=== PATIENT | female | born 1985 | race African-American/Black ===

== ENCOUNTER 2017-05-22 16:48 | Emergency (ER) | payer SELFPAY ==
[2017-05-22 17:06] VITALS: BP 105/54
[2017-05-22] MEDS ORDERED: AZIT-1 PO (17:56)
--- NOTE | 2017-05-22 17:57 | ER Report ---
History and Physical Time Seen By MD: 17:10 Hx. of Stated Complaint: SORE THROAT FOR ONE WEEK. HPI/ROS 31-year-old female ambulatory to the ER is been ill for a week has had sinus pressure left ear pain and fever Allergies: Coded Allergies: No Known Drug Allergies (Unverified , 05/22/17) Home Meds Active Scripts Azithromycin (ZITHROMAX) 250 Mg Tablet, 2 TAB PO ONCE Y for DAILY for 5 Days, # 5 TAB Prov:NAOMI MUNSON 05/22/17 Reviewed Nurses Notes: Yes Old Medical Records Reviewed: Yes Hx Smoking: No Hx Substance Use Disorder: No Hx Alcohol Use: No Constitutional Vital Sign - Last 24 Hours 05/22/17 17:06 Temp 98.1 Pulse 83 Resp 16 B/P (MAP) 105/54 Pulse Ox 98 O2 Delivery Room Air Physical Exam 31-year-old female alert and oriented mild distress HEENT has normocephalic/ atraumatic tympanic membranes are non-reddened and does have pain to palpation left maxillary sinus postnasal drainage noted lymphadenopathy in the left heart rate regular no murmurs rubs or gallops lungs clear to auscultation abdomen soft bowel sounds 4 quadrants Medical Decision Making Data Points Laboratory Hematology Test 05/22/17 16:53 Group A Streptococcus Screen Negative (NEGATIVE) Chemistry Test 05/22/17 16:53 Group A Streptococcus Screen Negative (NEGATIVE) ED Course/Re-evaluation ED Course Was seen in the triage room will be given azithromycin 500 daily 5 days note that her does have strep throat currently as well Re-evaluation In mild distress will go home with prescription follow-up with primary care physician 1 week DX sinusitis Decision to Disposition Date: May 22, 2017 Decision to Disposition Time: 17:20 Depart Departure Latest Vital Signs Vital Signs Date Time Temp Pulse Resp B/P (MAP) Pulse Ox O2 Delivery O2 Flow Rate FiO2 05/22/17 17:06 98.1 83 16 105/54 98 Room Air Impression: Primary Impression: Sinusitis Condition: Improved Disposition: HOME OR SELF-CARE Referrals: [facility] 1 Week New Scripts Azithromycin (ZITHROMAX) 250 Mg Tablet 2 TAB PO ONCE Y for DAILY for 5 Days, #5 TAB Prov: NAOMI MUNSON 05/22/17 Patient Instructions: Sinusitis (ED) Additional Instructions: Take medication as instructed, follow-up with primary care physician in one week to be rechecked NAOMI MUNSON May 22, 2017 17:57
== END 2017-05-22 18:06 | disposition home or self-care (01) ==
LOC: ER 17:59
DX: J32.9 Chronic sinusitis, unspecified (principal)
CPT/HCPCS: 87081; 87880; 99282

== ENCOUNTER 2017-09-01 00:51 | Emergency (ER) | payer SELFPAY ==
--- NOTE | 2017-09-01 01:03 | ER Report ---
History and Physical Time Seen By MD: 01:03 HPI/PJ CHIEF COMPLAINT: seizure HISTORY OF PRESENT ILLNESS: This is a 32 year old female. She was brought to the ER by EMS. Initial call was to a person not breathing. On arrival, the patient was found to be breathing, but had had a seizure. She was brought in with current post-ictal state. Took her about 30-60 minutes to start to wake up enough to talk to us somewhat. She was able to speak with her before this. Ivorian is her second language, and she was able to respond in her makah language sooner. She was able to answer some simple questions regarding pain. She indicated that she is having severe pain in her neck area. She denies other pain. Unable to get much more information from her at that time. Her was able to tell me that she has had several seizures in the past when in [place] and then when living in [place]. It is unclear to me the timing of their move here to [place]. She has been seen by neurology at the [facility], in the past. She is not on any anti-seizure medications at this time. He says that she will have smaller episodes where she will just seem to black out at times and have a shorter period of confusion when recovering. He is not sure if these are seizures or not. He does state that she has told him that the seizures stem from head injuries and problems as a child. She said that the neurologist had told them that she had too much fluid in her head and they recommended draining some by putting a needle in her back. REVIEW OF SYSTEMS: Unable to obtain further due to mental status. Allergies: Coded Allergies: No Known Drug Allergies (Unverified , 09/01/17) Home Meds Discontinued Scripts Azithromycin (ZITHROMAX) 250 Mg Tablet, 2 TAB PO ONCE Y for DAILY for 5 Days, # 5 TAB Prov:NAOMI MUNSON 05/22/17 Past Medical/Surgical History Seizures of uncertain cause. No other problems. Reviewed Nurses Notes: Yes Hx Smoking: No Hx Substance Use Disorder: No Hx Alcohol Use: No Constitutional Vital Sign - Last 24 Hours 09/01/17 09/01/17 09/01/17 09/01/17 00:57 01:30 02:30 03:00 Temp 97.4 Pulse 82 76 84 84 Resp 16 14 14 12 B/P (MAP) 110/69 103/64 (77) 86/45 (59) 82/65 (71) Pulse Ox 97 95 96 96 O2 Delivery Room Air Room Air Room Air Room Air 09/01/17 09/01/17 09/01/17 09/01/17 03:30 04:00 04:30 05:00 Pulse 82 109 84 84 Resp 12 12 12 B/P (MAP) 89/49 (62) 85/51 (62) 84/48 (60) 83/51 (62) Pulse Ox 94 96 95 93 O2 Delivery Room Air Room Air Room Air Room Air 09/01/17 09/01/17 09/01/17 09/01/17 05:30 06:00 06:22 07:00 Pulse 85 79 77 85 Resp 12 12 12 12 B/P (MAP) 77/44 (55) 71/38 (49) 85/56 (66) 80/50 (60) Pulse Ox 95 93 94 94 O2 Delivery Room Air Room Air Room Air Room Air 09/01/17 09/01/17 09/01/17 09/01/17 07:15 07:30 07:45 08:00 Pulse 87 87 80 90 Resp 12 14 14 14 B/P (MAP) 83/55 (64) 89/57 (68) 93/56 (68) 93/59 (70) Pulse Ox 94 95 94 92 O2 Delivery Room Air Room Air Room Air Room Air 09/01/17 09/01/17 09/01/17 08:15 08:30 08:45 Pulse 90 85 82 Resp 12 12 14 B/P (MAP) 96/61 (73) 104/59 (74) 97/61 (73) Pulse Ox 95 95 95 O2 Delivery Room Air Room Air Room Air Intake and Output 09/01/17 09/01/17 09/02/17 15:00 23:00 07:00 Intake Total 1100 ml Balance 1100 ml Physical Exam General Appearance: The patient is still very groggy. She is able to answer a few simple questions, but with significant difficulty. Eyes: Pupils are equal, round. Reactive to light. No pallor, injection or icterus. Extraocular movements are intact. ENT: Mucous membranes are moist. Normal oral mucosa. Posterior oropharynx is normal. Normal tympanic membranes and canals. Did not bite her tongue. Neck: Supple and non tender. No lymphadenopathy. Respiratory: Lungs are clear to auscultation. There are no retractions or accessory muscle use. Cardiovascular: Regular rate and rhythm. No murmurs, gallops or rubs. Normal capillary refill. No edema. No carotid bruits. Gastrointestinal: Abdomen is soft and non tender. Nondistended. Normal active bowel sounds. No costovertebral angle tenderness with percussion. No loss of bowel control. Genitourinary: No loss of bladder control. Neurological: Alert and oriented x3. She is moving all extremities. Cannot perform full neuro exam at this time. Skin: Warm and dry. No rashes. Musculoskeletal: Extremities are nontender. Full range of motion. No tenderness in palpation of the cervical, thoracic and lumbar spine. DIFFERENTIAL DIAGNOSIS: After history and physical exam, differential diagnosis was considered for a seizure including but not limited to epilepsy, electrolyte abnormality, toxicity of some kind, head injury, and breakthrough seizure. Medical Decision Making Data Points Result Diagram: 09/01/17 0211 09/01/17 0211 Laboratory Hematology Test 09/01/17 02:11 09/01/17 04:01 Red Blood Count 4.40 M/uL (4.17-5.56) Mean Corpuscular Volume 91.3 fL (80.0-96.0) Mean Corpuscular Hemoglobin 32.6 pg (26.0-33.0) Mean Corpuscular Hemoglobin Concent 35.7 g/dL (32.0-36.0) Red Cell Distribution Width 12.8 % (11.5-14.5) Mean Platelet Volume 8.6 fL (7.2-11.1) Neutrophils (%) (Auto) 52.0 % (39.4-72.5) Lymphocytes (%) (Auto) 36.3 % (17.6-49.6) Monocytes (%) (Auto) 9.0 % (4.1-12.4) Eosinophils (%) (Auto) 2.2 % (0.4-6.7) Basophils (%) (Auto) 0.5 % (0.3-1.4) Nucleated RBC Relative Count (auto) 0.0 /100WBC Neutrophils # (Auto) 3.1 K/uL (2.0-7.4) Lymphocytes # (Auto) 2.2 K/uL (1.3-3.6) Monocytes # (Auto) 0.5 K/uL (0.3-1.0) Eosinophils # (Auto) 0.1 K/uL (0.0-0.5) Basophils # (Auto) 0.0 K/uL (0.0-0.1) Nucleated RBC Absolute Count (auto) 0.00 K/uL Sodium Level 140 mmol/L (137-145) Potassium Level 3.8 mmol/L (3.5-5.0) Chloride Level 105 mmol/L (98-107) Carbon Dioxide Level 25 mmol/L (22-31) Blood Urea Nitrogen 9 mg/dl (7-18) Creatinine 0.50 mg/dl (0.52-1.04) Glomerular Filtration Rate Calc > 60.0 Random Glucose 100 mg/dl (75-110) Calcium Level 9.2 mg/dl (8.4-10.2) Total Bilirubin 0.3 mg/dl (0.2-1.3) Aspartate Amino Transf (AST/SGOT) 23 U/L (0-35) Alanine Aminotransferase (ALT/SGPT) 24 U/L (0-56) Alkaline Phosphatase 78 U/L (0-126) Total Protein 7.4 g/dl (6.3-8.2) Albumin 4.1 g/dl (3.5-5.0) Salicylates Level < 10 mg/L Salicylate Last Dose Date unk Acetaminophen Level < 10 ug/ml Serum Alcohol < 10 mg/dl Urine Color Straw Urine Clarity Clear Urine pH 7.0 pH (4.8-9.5) Urine Specific [place] 1.004 Urine Protein Negative mg/dL (NEGATIVE) Urine Glucose (UA) Negative mg/dL (NEGATIVE) Urine Ketones Negative mg/dL (NEGATIVE) Urine Blood Negative (NEGATIVE) Urine Nitrite Negative (NEGATIVE) Urine Bilirubin Negative (NEGATIVE) Urine Urobilinogen Negative mg/dL (0.2-1.9) Urine Leukocyte Esterase Negative (NEGATIVE) Urine RBC None /HPF (0-2/HPF) Urine WBC None /HPF (0-5/HPF) Urine Squamous Epithelial Cells None /LPF (</=FEW) Urine Bacteria Negative /HPF (NONE-FEW) Urine Mucus None /HPF (NONE-FEW) Urine Opiates Screen Positive Urine Barbiturates Screen Negative Ur Tricyclic Antidepressants Screen Negative Urine Phencyclidine Screen Negative Urine Amphetamines Screen Negative Urine Benzodiazepines Screen Negative Urine Cocaine Screen Negative Urine Cannabinoids Screen Negative Chemistry Test 09/01/17 02:11 09/01/17 04:01 White Blood Count 6.0 k/uL (4.5-11.0) Red Blood Count 4.40 M/uL (4.17-5.56) Hemoglobin 14.3 g/dL (12.0-16.0) Hematocrit 40.1 % (34.0-47.0) Mean Corpuscular Volume 91.3 fL (80.0-96.0) Mean Corpuscular Hemoglobin 32.6 pg (26.0-33.0) Mean Corpuscular Hemoglobin Concent 35.7 g/dL (32.0-36.0) Red Cell Distribution Width 12.8 % (11.5-14.5) Platelet Count 300 K/uL (150-450) Mean Platelet Volume 8.6 fL (7.2-11.1) Neutrophils (%) (Auto) 52.0 % (39.4-72.5) Lymphocytes (%) (Auto) 36.3 % (17.6-49.6) Monocytes (%) (Auto) 9.0 % (4.1-12.4) Eosinophils (%) (Auto) 2.2 % (0.4-6.7) Basophils (%) (Auto) 0.5 % (0.3-1.4) Nucleated RBC Relative Count (auto) 0.0 /100WBC Neutrophils # (Auto) 3.1 K/uL (2.0-7.4) Lymphocytes # (Auto) 2.2 K/uL (1.3-3.6) Monocytes # (Auto) 0.5 K/uL (0.3-1.0) Eosinophils # (Auto) 0.1 K/uL (0.0-0.5) Basophils # (Auto) 0.0 K/uL (0.0-0.1) Nucleated RBC Absolute Count (auto) 0.00 K/uL Glomerular Filtration Rate Calc > 60.0 Calcium Level 9.2 mg/dl (8.4-10.2) Total Bilirubin 0.3 mg/dl (0.2-1.3) Aspartate Amino Transf (AST/SGOT) 23 U/L (0-35) Alanine Aminotransferase (ALT/SGPT) 24 U/L (0-56) Alkaline Phosphatase 78 U/L (0-126) Total Protein 7.4 g/dl (6.3-8.2) Albumin 4.1 g/dl (3.5-5.0) Salicylates Level < 10 mg/L Salicylate Last Dose Date unk Acetaminophen Level < 10 ug/ml Serum Alcohol < 10 mg/dl Urine Color Straw Urine Clarity Clear Urine pH 7.0 pH (4.8-9.5) Urine Specific [place] 1.004 Urine Protein Negative mg/dL (NEGATIVE) Urine Glucose (UA) Negative mg/dL (NEGATIVE) Urine Ketones Negative mg/dL (NEGATIVE) Urine Blood Negative (NEGATIVE) Urine Nitrite Negative (NEGATIVE) Urine Bilirubin Negative (NEGATIVE) Urine Urobilinogen Negative mg/dL (0.2-1.9) Urine Leukocyte Esterase Negative (NEGATIVE) Urine RBC None /HPF (0-2/HPF) Urine WBC None /HPF (0-5/HPF) Urine Squamous Epithelial Cells None /LPF (</=FEW) Urine Bacteria Negative /HPF (NONE-FEW) Urine Mucus None /HPF (NONE-FEW) Urine Opiates Screen Positive Urine Barbiturates Screen Negative Ur Tricyclic Antidepressants Screen Negative Urine Phencyclidine Screen Negative Urine Amphetamines Screen Negative Urine Benzodiazepines Screen Negative Urine Cocaine Screen Negative Urine Cannabinoids Screen Negative Toxicology Test 09/01/17 02:11 09/01/17 04:01 Salicylates Level < 10 mg/L Salicylate Last Dose Date unk Acetaminophen Level < 10 ug/ml Serum Alcohol < 10 mg/dl Urine Opiates Screen Positive Urine Barbiturates Screen Negative Ur Tricyclic Antidepressants Screen Negative Urine Phencyclidine Screen Negative Urine Amphetamines Screen Negative Urine Benzodiazepines Screen Negative Urine Cocaine Screen Negative Urine Cannabinoids Screen Negative Urinalysis Test 09/01/17 04:01 Urine Color Straw Urine Clarity Clear Urine pH 7.0 pH (4.8-9.5) Urine Specific [place] 1.004 Urine Protein Negative mg/dL (NEGATIVE) Urine Glucose (UA) Negative mg/dL (NEGATIVE) Urine Ketones Negative mg/dL (NEGATIVE) Urine Blood Negative (NEGATIVE) Urine Nitrite Negative (NEGATIVE) Urine Bilirubin Negative (NEGATIVE) Urine Urobilinogen Negative mg/dL (0.2-1.9) Urine Leukocyte Esterase Negative (NEGATIVE) Urine RBC None /HPF (0-2/HPF) Urine WBC None /HPF (0-5/HPF) Urine Squamous Epithelial Cells None /LPF (</=FEW) Urine Bacteria Negative /HPF (NONE-FEW) Urine Mucus None /HPF (NONE-FEW) EKG/Imaging EKG Interpretation 12 lead EKG: Rhythm: Normal sinus rhythm, rate 80 [place]: normal QRS: normal ST segments: normal Imaging CHEST W/O CONTRAST HISTORY: Seizure. Neck and chest pain. COMPARISON: None. CT brain and CT angiogram neck were performed concurrently. TECHNIQUE: Axial images were obtained from the thoracic inlet through the upper abdomen without intravenous contrast. Sagittal and coronal reformats were performed. One of the following dose optimization techniques was utilized in the performance of this exam: Automated exposure control; adjustment of the mA and/ or kV according to the patient's size; or use of an iterative reconstruction technique. Specific details can be referenced in the facility's radiology CT exam operational policy. CONTRAST: None. FINDINGS: Thoracic inlet: Thyroid is heterogeneous. Aorta: No aneurysm. There is no atherosclerosis of the aorta. Heart / Pericardium: The heart is normal. There is no pericardial effusion. There is no coronary artery calcification. Mediastinum / Lo: Normal mediastinum. No lymphadenopathy. Lungs / Pleura: No pleural effusion. There is minimal dependent atelectasis. No pneumothorax. The airways are normal. Upper abdomen: Normal. Bones/vertebra/soft tissues: Bones and soft tissues are unremarkable. IMPRESSION: 1. No acute finding in the chest. 2. Heterogeneous thyroid may be due to thyroid parenchymal disease. Report Dictated By: Jaycee Humphrey at 09/01/2017 3:34 AM HEAD W/O CONTRAST HISTORY: Seizures.. Neck pain COMPARISON: None. TECHNIQUE: Axial images were obtained from the skull base to the vertex without contrast. Sagittal and coronal reformats were performed. One of the following dose optimization techniques was utilized in the performance of this exam: Automated exposure control; adjustment of the mA and/ or kV according to the patient's size; or use of an iterative reconstruction technique. Specific details can be referenced in the facility's radiology CT exam operational policy. CONTRAST: None. FINDINGS: Brain: There is streak artifact from earrings. No intracranial hemorrhage, mass or edema. There is a partially empty sella, which is nonspecific, although can be idiopathic Ventricles and sulci: Sulci are normal. Lateral and third ventricles are enlarged for patient age. There is no dilation of the temporal tips of the lateral ventricles. Osseous structures: There is lucency through the superolateral wall of the left ethmoid sinus (axial image 28 series 4). There is no associated soft tissue stranding, and this could be a vascular channel versus old fracture. Paranasal sinuses and mastoids: There is mild mucosal thickening of the maxillary sinuses. There is mild to moderate mucosal thickening of the left ethmoid sinus. The right frontal sinus is not pneumatized, a developmental variant. Mastoids are clear. Orbits and soft tissues: Normal. IMPRESSION: 1. Enlargement of the lateral and third ventricles, but with no dilation of the temporal tips as would be expected for hydrocephalus. Findings may be due to central volume loss. 2. Mild sinus disease. Report Dictated By: Jaycee Humphrey at 09/01/2017 3:14 AM CTA NECK/CAROTIDS W W/O CONTR HISTORY: Seizure. Neck pain. COMPARISON: None. CT brain was performed concurrently. TECHNIQUE: Overlapping thin sections were obtained during a bolus of IV contrast from the aortic arch through the [place]. Reconstruction of the source data set includes multiplanar 2D in the sagittal and coronal planes, and 3D coronal thin slab MIP series. [employer] images have been stored on PACS. Stenosis of the internal carotid arteries are calculated using NASCET criteria. One of the following dose optimization techniques was utilized in the performance of this exam: Automated exposure control; adjustment of the mA and/ or kV according to the patient's size; or use of an iterative reconstruction technique. Specific details can be referenced in the facility's radiology CT exam operational policy. CONTRAST: 75 mL of IV [id number]-[id number]. FINDINGS: Aortic arch and great vessels: The brachiocephalic artery and the left common carotid artery have a common origin, a developmental variant. No aneurysm or dissection. Right CCA / ICA / ECA: Normal. Left CCA / ICA / ECA: Normal. Vertebral arteries: Normal. The vertebral arteries are codominant. [place]: There is a triangular-shaped 1 mm vascular density at the expected location of the right posterior communicating artery origin (axial image 51 series 8 and sagittal image 250 series 10). 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 Soft tissues: Normal. Musculoskeletal: There is straightening of the normal cervical lordosis. Vertebral body heights are maintained. No listhesis. The spinal canal is normal in caliber. The prevertebral soft tissues are within normal limits. Upper chest: Please see the CT chest report that is dictated separately. IMPRESSION: 1. 1 mm probable infundibulum rather than aneurysm at the expected location of the right posterior communicating artery origin, given its triangular shape. 2. Normal CT angiogram neck. 3. Straightening of the normal cervical lordosis, which may be positional or due to muscle spasm. Report Dictated By: Jaycee Humphrey at 09/01/2017 3:23 AM ED Course/Re-evaluation Clinical Indication for ER IV: Hydration, IV Access ED Course After the initial evaluation, limited neuro exam able to be done. Plan was to do labs and imaging and wait for her to wake up further. CT scans were being done and the patient had another seizure just after they were completed, but she was still in radiology. This was witnessed by nursing and I was called over and saw the last part of the seizure. She started by grabbing at her throat and complaining that it hurt and she was having a hard time swallowing. Then went on to roll her eyes back and have generalized tonic-clonic movements followed by post-ictal unconscious state. Rolled to a recovery position on her side to protect her airway. She was given 2mg IV Ativan to stop the seizure and protect her given the fact that this was her second seizure. No further seizures. She is waking up, although more slowly than previously due to the Ativan. Her is able to communicate a few words with her. She is able to follow simple commands at this time. No need for airway protection at this time. I talked to the and indicated that we would need to send her to a hospital where they have neurology available for further evaluation. He was reluctant, but understood after I explained things to him. Based on previous work-ups, continuity of care, and family resources that we send him to [place]. I called and spoke to [facility], Dr. Calvillo, part of the neurology team. She accepted the patient for transport there. We are loading her with 2 grams of IV Keppra at this time after discussion with Dr. Calvillo, and arranging ground transport. Labs unremarkable. Imaging is as noted above. During the time waiting for transport, she did have some lower blood pressure readings. We provided a bolus of normal saline which helped bring the pressure up. This was repeated again as well. Decision to Disposition Date: Sep 01, 2017 Decision to Disposition Time: 04:41 Transfer Facility Patient was transferred to [facility] via ambulance. The transfer was non-emergent, and was required because the capabilities of the receiving hospital. Consent for transfer was obtained from the patient's [facility] was chosen. See EMTALA for transfer orders. Depart Departure Latest Vital Signs Vital Signs Date Time Temp Pulse Resp B/P (MAP) Pulse Ox O2 Delivery O2 Flow Rate FiO2 09/01/17 08:45 82 14 97/61 (73) 95 Room Air 09/01/17 00:57 97.4 Impression: Primary Impression: Seizure Condition: Condition Unchanged Disposition: XFER TO [facility]UTE [facility]ARE [facility]OSPITAL New Scripts No Active Prescriptions or Reported Meds DAMION MELGAR MD Sep 01, 2017 01:03
--- NOTE | 2017-09-01 01:40 | EKG ---
FACILITY: [facility] [place] PATIENT NAME: CARLEY BROUSSARD : [id number] MR: [id number] V: [id number] EXAM DATE: ORDERING PHYSICIAN: DAMION MELGAR TECHNOLOGIST: SUHAS Test Reason : SIEZURE Blood Pressure : / mmHG Vent. Rate : 080 BPM Atrial Rate : 080 BPM P-R Int : 150 ms QRS Dur : 076 ms QT Int : 386 ms P-R-T Axes : 071 045 051 degrees QTc Int : 445 ms Normal sinus rhythm Normal ECG No previous ECGs available Confirmed by Galo Agrawal ([id number]) on 09/01/2017 6:05:06 AM Referred By: Confirmed By:Galo Shields
[2017-09-01] MEDS ORDERED: IOPAMIDOL 76% 100 ML INFUS BTL 100 ML ONE (01:59)
[2017-09-01] MEDS ORDERED: NS 0.9% 25 ML BAG 50 ML ONE (02:00)
[2017-09-01] MEDS ORDERED: LORazepam 2 MG/ML VIAL IVP ONE (02:10)
[2017-09-01 02:18] LABS: PLATELET COUNT, AUTOMATED 300 K/uL (150-450)
--- NOTE | 2017-09-01 03:27 | RADIOLOGY IMAGING REPORT ---
FACILITY: [facility] [place] PATIENT NAME: Silvestre Arnold : 1985 MR: [id number] V: [id number] EXAM DATE: ORDERING PHYSICIAN: DAMION MELGAR [place]CHNOLOGIST: [place] [facility] [place] Silvestre [place] : 1985 Visit/Account:[id number] Date of Sevice: 09/01/2017 HEAD W/O CONTRAST HISTORY: Seizures.. Neck pain COMPARISON: None. TECHNIQUE: Axial images were obtained from the skull base to the vertex without contrast. Sagittal an d coronal reformats were performed. One of the following dose optimization techniques was utilized in the performance of this exam: Autom ated exposure control; adjustment of the mA and/or kV according to the patient's size; or use of an i terative reconstruction technique. Specific details can be referenced in the facility's radiology CT exam operational policy. CONTRAST: None. FINDINGS: Brain: There is streak artifact from earrings. No intracranial hemorrhage, mass or edema. There is a partially empty sella, which is nonspecific, although can be idiopathic Ventricles and sulci: Sulci are normal. Lateral and third ventricles are enlarged for patient age. Th ere is no dilation of the temporal tips of the lateral ventricles. Osseous structures: There is lucency through the superolateral wall of the left ethmoid sinus (axial image 28 series 4). There is no associated soft tissue stranding, and this could be a vascular channe l versus old fracture. Paranasal sinuses and mastoids: There is mild mucosal thickening of the maxillary sinuses. There is m ild to moderate mucosal thickening of the left ethmoid sinus. The right frontal sinus is not pneumati zed, a developmental variant. Mastoids are clear. Orbits and soft tissues: Normal. IMPRESSION: 1. Enlargement of the lateral and third ventricles, but with no dilation of the temporal tips as woul d be expected for hydrocephalus. Findings may be due to central volume loss. 2. Mild sinus disease. Report Dictated By: Jaycee Humphrey at 09/01/2017 3:14 AM Report E-Signed By: Jaycee Humphrey at 09/01/2017 3:23 AM WSN:[id number]
--- NOTE | 2017-09-01 03:38 | RADIOLOGY IMAGING REPORT ---
FACILITY: [facility] - [place] PATIENT NAME: Silvestre Arnold : 1985 MR: [id number] V: [id number] EXAM DATE: ORDERING PHYSICIAN: DAMION MELGAR TECHNOLOGIST: Location: [facility] [place] Patient: Silvestre Arnold : 1985 Visit/Account:[id number] Date of Sevice: 09/01/2017 CTA NECK/CAROTIDS W W/O CONTR HISTORY: Seizure. Neck pain. COMPARISON: None. CT brain was performed concurrently. TECHNIQUE: Overlapping thin sections were obtained during a bolus of IV contrast from the aortic arch through the [place]. Reconstruction of the source data set includes multiplanar 2D in the s agittal and coronal planes, and 3D coronal thin slab MIP series. Automatic Buffer images have been stor ed on PACS. Stenosis of the internal carotid arteries are calculated using NASCET criteria. One of the following dose optimization techniques was utilized in the performance of this exam: Autom ated exposure control; adjustment of the mA and/or kV according to the patient's size; or use of an i terative reconstruction technique. Specific details can be referenced in the facility's radiology CT exam operational policy. CONTRAST: 75 mL of IV Isovue-370. 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 No aneurysm or dissection. Right CCA / ICA / ECA: Normal. Left CCA / ICA / ECA: Normal. Vertebral arteries: Normal. The vertebral arteries are codominant. [place]: There is a triangular-shaped 1 mm vascular density at the expected location of the right posterior communicating artery origin (axial image 51 series 8 and sagittal image 250 series 10 ). 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 Soft tissues: Normal. Musculoskeletal: There is straightening of the normal cervical lordosis. Vertebral body heights are m aintained. No listhesis. The spinal canal is normal in caliber. The prevertebral soft tissues are wit hin normal limits. Upper chest: Please see the CT chest report that is dictated separately. IMPRESSION: 1. 1 mm probable infundibulum rather than aneurysm at the expected location of the right posterior co mmunicating artery origin, given its triangular shape. 2. Normal CT angiogram neck. 3. Straightening of the normal cervical lordosis, which may be positional or due to muscle spasm. Report Dictated By: Jaycee Humphrey at 09/01/2017 3:23 AM Report E-Signed By: Jaycee Humphrey at 09/01/2017 3:34 AM WSN:[id number]
--- NOTE | 2017-09-01 03:41 | RADIOLOGY IMAGING REPORT ---
FACILITY: [facility] PATIENT NAME: Silvestre Arnold : 1985 MR: [id number] V: [id number] EXAM DATE: ORDERING PHYSICIAN: DAMION MELGAR TECHNOLOGIST: Location: [facility] - [place] Patient: Silvestre Arnold : 1985 Visit/Account:[id number] Date of Sevice: 09/01/2017 CHEST W/O CONTRAST HISTORY: Seizure. Neck and chest pain. COMPARISON: None. CT brain and CT angiogram neck were performed concurrently. TECHNIQUE: Axial images were obtained from the thoracic inlet through the upper abdomen without intra venous contrast. Sagittal and coronal reformats were performed. One of the following dose optimization techniques was utilized in the performance of this exam: Autom ated exposure control; adjustment of the mA and/or kV according to the patient's size; or use of an i terative reconstruction technique. Specific details can be referenced in the facility's radiology CT exam operational policy. CONTRAST: None. FINDINGS: Thoracic inlet: Thyroid is heterogeneous. Aorta: No aneurysm. There is no atherosclerosis of the aorta. Heart / Pericardium: The heart is normal. There is no pericardial effusion. There is no coronary jaun ry calcification. Mediastinum / Lo: Normal mediastinum. No lymphadenopathy. Lungs / Pleura: No pleural effusion. There is minimal dependent atelectasis. No pneumothorax. The air ways are normal. Upper abdomen: Normal. Bones/vertebra/soft tissues: Bones and soft tissues are unremarkable. IMPRESSION: 1. No acute finding in the chest. 2. Heterogeneous thyroid may be due to thyroid parenchymal disease. Report Dictated By: Jaycee Humphrey at 09/01/2017 3:34 AM Report E-Signed By: Jaycee Humphrey at 09/01/2017 3:38 AM WSN:[id number]
[2017-09-01] MEDS ORDERED: ONDANSETRON 4 MG/2 ML VIAL ONE (04:13)
[2017-09-01] MEDS ORDERED: LEVETIRACETAM IVPB ONE (04:45)
[2017-09-01] MEDS ORDERED: NS 0.9% IVPB ONE (04:45)
[2017-09-01] MEDS ORDERED: [UNRECOGNIZED DRUG - OTHER] IVPB ONE (04:45)
[2017-09-01] MEDS ORDERED: NS(*) 0.9% 1000 ML BAG 1,000 ML IV ONE ×2 (06:05→06:25)
[2017-09-01] MEDS: ACETAMINOPHEN 325 MG TAB PO ONE ×2 (07:55→07:59)
[2017-09-01] MEDS ORDERED: ACETAMINOPHEN(*)1000 MG/100 ML 100 ML IVPB ONE (08:10)
[2017-09-01 08:45] VITALS: BP 97/61
== END 2017-09-01 08:50 | disposition short-term general hospital (02) ==
LOC: ER 00:59
DX: R56.9 Unspecified convulsions (principal); R03.1 Nonspecific low blood-pressure reading
CPT/HCPCS: 70450; 70498; 71250; 80305; 80320; 80329; 81001; 85025; 93005; 96365; 96366; 96375; 99285; J0131; J1953; J2060; J2405; J7030; J7050; Q9967; 82040; 82247; 82310; 82374; 82435; 82565; 82947; 84075; 84132; 84155; 84295; 84450; 84460; 84520

== ENCOUNTER → 2017-09-01 | Outpatient (CLI) | payer SELFPAY ==
[~2017-09-01] MED LIST: AZIT-1 PO
== END ==
LOC: AMB 00:29
PROVIDERS: ATTEND Nurse Practitioner
DX: R56.9 Unspecified convulsions (principal)
CPT/HCPCS: A0425; A0429

== ENCOUNTER → 2017-09-01 | Outpatient (CLI) | payer SELFPAY | LOC: AMB 08:34 | PROVIDERS: ATTEND Nurse Practitioner | DX: R56.9 Unspecified convulsions (principal); R53.83 Other fatigue | CPT/HCPCS: A0425; A0426; A0888 ==

== ENCOUNTER 2017-09-16 14:25 | Emergency (ER) | payer SELFPAY ==
[2017-09-16 14:31] VITALS: BP 103/66
--- NOTE | 2017-09-16 14:38 | ER Report ---
History and Physical Time Seen By MD: 14:38 Hx. of Stated Complaint: SORE THROAT AND FEVER FOR 2 DAYS. HPI/ROS Otherwise healthy 32-year-old female presents to the emergency department with a sore throat, subjective fever chills, and for this in her left ear. She is taking by mouth but minimally given the pain. No change in voice. Her son has a same symptoms. No cough, abdominal pain, or nausea vomiting diarrhea. Remainder of the 14 system rev: Yes Allergies: Coded Allergies: No Known Drug Allergies (Unverified , 09/01/17) Home Meds Active Scripts Amoxicillin (AMOXICILLIN) 500 Mg Capsule, 1 CAP PO Q8H, #15 CAPSULE 0 Refills Prov:LIZ DEMARCO MD 09/16/17 Reviewed Nurses Notes: Yes Old Medical Records Reviewed: Yes Hx Smoking: No Hx Substance Use Disorder: No Hx Alcohol Use: No Constitutional Vital Sign - Last 24 Hours 09/16/17 14:31 Temp 99.2 Pulse 114 Resp 18 B/P (MAP) 103/66 Pulse Ox 96 Physical Exam General Appearance: The patient is alert, has no immediate need for airway protection and no current signs of toxicity. HEENT: o/p with enlarged tonsils with exudate. No INDEXER or RPA. Normal epiglottis Eyes: Pupils equal and round no injection. Respiratory: Chest is non tender, lungs are clear to auscultation. Cardiac: regular rate and rhythm Gastrointestinal: Abdomen is soft and non tender, no masses, bowel sounds normal. Neck: Neck is supple and non tender. No pain with tracheal rock Extremities have full range of motion and are non tender. Skin: No rashes or lesions. DIFFERENTIAL DIAGNOSIS: After history and physical exam differential diagnosis was considered for strep pharyngitis, viral pharyngitis, RPA, INDEXER Medical Decision Making Data Points Laboratory Hematology Test 09/16/17 14:35 Group A Streptococcus Screen Negative (NEGATIVE) Chemistry Test 09/16/17 14:35 Group A Streptococcus Screen Negative (NEGATIVE) ED Course/Re-evaluation ED Course Otherwise healthy 32-year-old female with a negative rapid strep test, however with signs and symptoms consistent with strep pharyngitis. Her son has lesser symptoms but tested positive for strep pharyngitis. Given the close contact and her symptoms consistent with a bacterial pharyngitis, I gave her Decadron 4 supportive relief as well as amoxicillin for likely strep pharyngitis. She will follow-up with her primary care physician Decision to Disposition Date: Sep 16, 2017 Decision to Disposition Time: 16:11 Depart Departure Latest Vital Signs Vital Signs Date Time Temp Pulse Resp B/P (MAP) Pulse Ox O2 Delivery O2 Flow Rate FiO2 09/16/17 14:31 99.2 114 18 103/66 96 Impression: Primary Impression: Strep pharyngitis Condition: Improved Disposition: HOME OR SELF-CARE New Scripts Amoxicillin (AMOXICILLIN) 500 Mg Capsule 1 CAP PO Q8H, #15 CAPSULE 0 Refills Prov: LIZ DEMARCO MD 09/16/17 Patient Instructions: Strep Throat (ED) LIZ DEMARCO MD Sep 16, 2017 14:38
[2017-09-16] MEDS ORDERED: DEXAMETHASONE 4 MG TAB PO ONE (16:10)
[2017-09-16] MEDS ORDERED: AMOX-362 PO (16:16)
== END 2017-09-16 16:32 | disposition home or self-care (01) ==
LOC: ER 14:40
DX: J02.0 Streptococcal pharyngitis (principal)
CPT/HCPCS: 87081; 87880; 99283; J8540